=== PATIENT | female | born 1960 | race Caucasian/White ===

== ENCOUNTER 2018-09-03 06:00 | Day surgery (SDC) | payer OTHER ==
[~2018-09-03] VITALS: Ht 154.9 cm; Wt 99.0 kg
[~2018-09-03 06:00] MED LIST: ACET-1359 PO; ASPI-831 GTB; BP MED PO; CHOLESTEROL MEDS.; [UNRECOGNIZED DRUG - OTHER]; [UNRECOGNIZED DRUG - OTHER]; [UNRECOGNIZED DRUG - OTHER] PO
[2018-09-03 07:00] VITALS: Ht 154.9 cm; Wt 99.0 kg
[2018-09-03] MEDS ORDERED: LOSARTAN (07:42)
[2018-09-03] MEDS ORDERED: TRAMADOL (07:42)
[2018-09-03 07:55] VITALS: BP 178/76; PULSE 79; RESP 20
[2018-09-03] MEDS ORDERED: FENTAnyl 50 MCG/ML VIAL ONE (08:11)
[2018-09-03] MEDS ORDERED: PROPOFOL 20 ML ONE (08:11)
--- NOTE | 2018-09-03 08:13 | PREAC ---
Date/Time of Note Date/Time of Note DATE: 09/03/18 TIME: 08:12 Anesthesia Eval and Record Evaluation Time Pre-Procedure Interview DATE: 09/03/18 TIME: 08:12 Age 58 Sex female NPO: 8 hrs Preoperative diagnosis abd apin Planned procedure egd c olonoscopy Past Medical History Past Medical History: Includes Cardio: HTN GI: Obesity Surgery & Anesthesia Issues No known issue Meds Anticoagulation: No Beta Mae within 24 hr: No Reason Beta Mae not given: Pt. not on B-Mae Reported Medications [Tramadol] No Conflict Check 09/03/18 [Losartan] No Conflict Check 09/03/18 Aspirin (Aspirin) 81 Mg Chew, 81 MG GTB DAILY 03/02/13 Acetaminophen (TYLENOL 500 MG TAB) 500 Mg Tab, 500 MG PO BID PRN 03/02/13 Discontinued Reported Medications [Cholesterol Meds.] No Conflict Check, DAILY 03/02/13 [Eprofen] No Conflict Check, 500 BID PRN 03/02/13 [Biatole] No Conflict Check, 10 DAILY 03/02/13 [Vitamin For Hair] No Conflict Check, PO DAILY 05/25/12 [Bp Med] No Conflict Check, PO DAILY 05/25/12 Meds reviewed: Yes Allergies Coded Allergies: No Known Drug Allergy (Verified Allergy, Unknown, 09/03/18) Allergies Reviewed: Yes Labs/Studies Labs Reviewed: Reviewed by anesthesiologist test: N/A Studies: ECG (n/a), CXR (n/a) Pre-procedure Exam Last vitals Vital Signs Date Temp Pulse Resp B/P (MAP) Pulse Ox O2 O2 Flow FiO2 Time Delivery Rate 09/03/18 97.1 79 20 178/76 98 Room Air 07:55 (110) Airway: Adequate mouth opening Mallampati: Mallampati I Teeth: Normal Lung: Normal Heart: Normal ASA Physical Status ASA physical status: 2 Emergency: None Planned Anesthetic General/MAC: MAC Planned Pain Management Parenteral pain med Pre-operative Attestations Prior to commencing anesthesia and surgery, the patient was re-evaluated, there was verification of: *The patient's identity *The results of appropriate recent lab work and preoperative vital signs *The above evaluation not changing prior to induction *Anesthetic plan, risk benefits, alternative and complications discussed with patient/family; questions answered; patient/family understands, accepts and wishes to proceed. ABENA ALMODOVAR MD September 03, 2018 08:13
[2018-09-03 09:05] VITALS: BP 143/68; PULSE 68; RESP 18
--- NOTE | 2018-09-04 14:06 | PAC ---
Date/Time of Note Date/Time of Note DATE: 09/04/18 TIME: 14:05 Post-Anesthesia Notes Post-Anesthesia Note Last documented vital signs Vital Signs Date Temp Pulse Resp B/P (MAP) Pulse Ox O2 O2 Flow FiO2 Time Delivery Rate 09/03/18 97.1 68 18 143/68 96 Room Air 09:05 (93) 09/03/18 97.1 07:55 Activity: WNL Respiratory function: WNL Cardiovascular function: WNL Mental status: Baseline Pain reasonably controlled: Yes Hydration appropriate: Yes Nausea/Vomiting absent: No ABENA ALMODOVAR MD September 04, 2018 14:06
== END 2018-09-03 12:59 | disposition home or self-care (01) ==
LOC: CANPRESDC → GIL 06:00
PROVIDERS: ATTEND Internal Medicine Gastroenterology
DX: Z12.11 Encounter for screening for malignant neoplasm of colon (principal); K29.50 Unspecified chronic gastritis without bleeding; K44.9 Diaphragmatic hernia without obstruction or gangrene; K26.9 Duodenal ulcer, unspecified as acute or chronic, without hemorrhage or perforation; K57.30 Diverticulosis of large intestine without perforation or abscess without bleeding; I10 Essential (primary) hypertension
CPT/HCPCS: 43239; 45378; 88305; 88312; J3010; Z7610